=== PATIENT | male | born 1975 | race Caucasian/White ===

== ENCOUNTER 2021-12-14 10:41 | Emergency (ER) | payer MEDICAID ==
[~2021-12-14] VITALS: Ht 180.3 cm; Wt 80.0 kg
[~2021-12-14 10:41] MED LIST: UNABLE TO OBTAIN
[2021-12-14 11:43] VITALS: BP 125/81
== END 2021-12-14 12:48 | disposition left against medical advice (07) ==
LOC: ER 10:41
DX: M25.551 Pain in right hip (principal); M25.512 Pain in left shoulder; Z53.21 Procedure and treatment not carried out due to patient leaving prior to being seen by health care provider; W18.39XA Other fall on same level, initial encounter; Y93.89 Activity, other specified; Y92.89 Other specified places as the place of occurrence of the external cause; Y99.8 Other external cause status